=== PATIENT | male | race Two or more races ===

== ENCOUNTER 2022-12-04 17:25 | Newborn (NB) | payer MEDICAID, SELFPAY ==
[2022-12-04] VITALS (7 sets, daily range): PULSE 120–135; RESP 38–46; TEMP 36.4–37
[2022-12-05] VITALS (7 sets, daily range): PULSE 120–130; RESP 32–38; TEMP 36.6–37.2; O2SAT 95–96
--- NOTE | 2022-12-05 06:53 | HPE_ITS ---
Date of service: 12/05/22 Time of Service: 06:53 Assessment and Plan Assessment and plan (1) Liveborn , of [place] , born in hospital by vaginal delivery: Status: Chronic Assessment and plan: boy, delivered via uncomplicated vaginal delivery at 40+1 weeks EGA to a 35 year old (SAB x 1) GBS negative mom. Maternal blood type O+/ALEXEY negative. blood type A+/ALEXEY negative. weight 3690 grams. Mom is breast feeding and infant has latched a few times since . Noted both urine and stool output. Physical exam unremarkable. Routine monitoring, care, safety, and feeding. Plan for discharge to home in 24-36 hours. Family and nursing care team updated with regards to assessment and plan and stated agreement and understanding. Exam General Apperance Notable Details: General: alert, no distress, non-dysmorphic in appearance Head: normocephalic, atraumatic; anterior fontanelle open, soft and flat Eyes: red reflexes present bilaterally, normal set and spacing, no conjunctival injection, no drainage noted Nose: nares patent bilaterally, no nasal flaring Ears: pinna with normal shape and appropriately set; no ear drainage noted Oral/Pharyngeal: moist mucus membranes, no lesions, palate intact Neck: supple and with full range of motion Chest well: nipples normal set and spacing; chest expansion and chest well symmetric CV: heart with regular rate and rhythm; no murmur; femoral and brachial pulses 2+ and are equal bilaterally Lungs: clear to auscultation bilaterally with good aeration in all lung hernandez; normal respiratory rate; no retractions no increased work of breathing noted Abdomen: soft, non-tender, non-distended; no organomegaly; no masses noted; umbilicus with clamp Skin: acyanotic, no rashes, no lesions, no bruising, well perfused : anus patent and in appropriate location; normal external male genitalia; testes descended bilaterally Extremities: moves all extremities well; no deformity noted on inspection; bilateral hips with no clicks/clunks; no edema Neuro: alert and appropriate to exam; good tone, normal michael Spine: straight and without deformity; no sacral dimple or donna Delivery Delivery Info Gestational Age in Weeks/Days: 40 Weeks and 1 Days Gestational Status: Term (39-41.6 wks) Infant Gender: Male Type of Delivery: Vaginal Infant Delivery Date-Baby A: 12/04/22 Delivery Time-Baby A: 17:25 weight: 3690 g Length-Baby A: 52.07 cm Head Circumference-Baby A: 32 cm Presentation: Cephalic Cephalic Position: Vertex Breech Position: N/A Number of Cord Vessels: 3 Total Time of ROM: [id number] Amniotic Fluid Color: Light Meconium Born En Route: No Shoulder Dystocia: No Vacuum Assisted Delivery: N/A Forcep Assisted Delivery: N/A Delivery Outcome: Liveborn -1 Minute Interval Heart Rate-1 minute: 100 BPM or Greater Respiratory Effort- 1 minute: Spontaneous/Strong Cry Muscle Tone-1 minute: Active Movement Reflex Response-1 minute: Prompt Response Color-1 minute: Pallor or Cyanosis Total Score-1 minute: 8 -5 Minute Interval Heart Rate- 5 minute: 100 BPM or Greater Respiratory Effort-5 minute: Spontaneous/Strong Cry Muscle Tone-5 minute: Active Movement Reflex Response-5 minute: Prompt Response Color-5 minute: Bluish Hands or Feet Total Score- 5 minute: 9 Maternal History Maternal Information Alcohol Intake: never Substance Use Type: does not use Maternal Medical History Maternal History Summary Note: See Maternal History Diabetes: NEGATIVE FOR Hypertension: NEGATIVE FOR Heart disease: NEGATIVE FOR Auto-immune disorder: NEGATIVE FOR Kidney disease/UTI: NEGATIVE FOR Neurologic/epilepsy: NEGATIVE FOR Psychiatric: NEGATIVE FOR Depression/ depression: NEGATIVE FOR Hepatitis/liver disease: NEGATIVE FOR Varicosities/phlebitis: NEGATIVE FOR Thyroid dysfunction: NEGATIVE FOR Trauma/domestic violence: NEGATIVE FOR History of blood transfusions: NEGATIVE FOR D (Rh) Sensitized: NEGATIVE FOR Pulmonary (e.g.,TB,Asthma): NEGATIVE FOR Seasonal allergies: NEGATIVE FOR Drug/latex allergies/reactions: NEGATIVE FOR Breast: NEGATIVE FOR Manager Nursing Home surgery: NEGATIVE FOR Operations/hospitalizations: NEGATIVE FOR Anesthetic complications: NEGATIVE FOR History of abnormal pap: NEGATIVE FOR Uterine anomaly/hailee: NEGATIVE FOR Infertility: NEGATIVE FOR Anti-retroviral treatment: NEGATIVE FOR Relevant family history: NEGATIVE FOR Genetic History Patients age 35 years or older as of [place]: Yes Thalassemia (Sinhala, Faroese, Mediterranean, or Black: No Congenital Heart Defect: No Neural Tube Defect (Meningomyelocele, Spina Bifida, or Ancen: No Down Syndrome: No Anoop-Sachs (Ashkenazi Nondenominational, Cajun, Tajik [place]): No Petra Disease (Ashkenazi Nondenominational): No Familial Dysautonomia (Ashkenazi Nondenominational): No Sickle Cell Disease or Trait (): No Muscular Dystrophy: No Cystic Fibrosis: No P[place]'s Chorea: No Mental Retardation/Autism: No Other inherited genetic or chromosomal disorder: No Maternal Metabolic Disorder (EG,TYPE 1 Diabetes, PKU): No Patient or baby's father had a child with defects: No Recurrent loss or a stillbirth: No Medications (including supplements, vitamins, herbs or o: No Any other: No Maternal Information Maternal History Age: 35 : 4 Para: 2 Expected Date of Delivery: 12/03/22 Number of Babies in Womb: 1 Gestational Age in Weeks/Days: 40 Weeks and 1 Days Delivery Date-Baby A: 12/04/22 Maternal Labs Group Beta Strep Negative Rubella Positive (05/22/22 15:00) Hepatitis B Negative (05/22/22 15:00) Hepatitis C Antibody Negative (05/22/22 15:00) Blood Type O+ Antibody Screen NEGATIVE (12/04/22 15:37) HIV Negative (05/22/22 15:00) Syphillis Gonorrhea Negative (05/22/22 14:30) Chlamydia Negative (05/22/22 14:30) Varicella Immunity Immune Labor/Delivery Information Labor Anesthesia: None Attempted: No Maternal Medications Steroids Given: None Reason Steroids Not Administered: N/A Visit Medications Visit Medications: Generic Name Dose Route Start Last Admin Trade Name Freq PRN Reason Stop Dose Admin Erythromycin 0 gm 12/04/22 18:00 12/04/22 20:21 Erythromycin Ophth Oint 1 Gm Tube OU 1 tube DIRECTED TY Administration Phytonadione 1 mg 12/04/22 18:00 12/04/22 20:21 Phytonadione 1 Mg/0.5 Ml Amp IM 1 mg DIRECTED TY Administration
[2022-12-05] MEDS: Acetaminophen Solution 160 MG/5 ML CUP 40 MG PO (13:02)
--- NOTE | 2022-12-05 14:37 | W.OB.CIRC ---
Date of service: 12/05/22 Time of Service: 14:37 Circumcision Note Pre-Procedure Circumcision Request: Yes Circumcision Consent: Verbal Consent Obtained and Written Consent Signed Position: Papoose Board and Supine Time Out: Correct Patient, Correct Site, Correct Patient Position, Agreement on Procedure, Accurate Procedure Consent Form and Safety Precautions Based on Patient History or Medication Use Procedure Information Time of Procedure: 14:38 Site Prep: Sterile Drape and Alcohol Anesthetics/Blocks: 1% Lidocaine and Ring Block Equipment Used: Mogen Clamp Systemic Medications: Oral Medication (24% sucrose drops, 40 mg tylenol PO) Complications: None Status: Appropriate Cosmetic Outcome, Hemostatic and Tolerated Procedure Well Parents Present: Mother and Father Procedure Note: F/up with Peds
[2022-12-05] MEDS: Lidocaine 1% Multi-Dose 20 ML VIAL (14:38)
--- NOTE | 2022-12-05 18:19 | W.NBDISCHARG ---
Date of service: 12/05/22 Time of Service: 17:20 DS: Diagnosis Discharge Diagnosis (1) Liveborn infant, of [place] , born in hospital by vaginal delivery: Status: Chronic Discharge Plan Disposition Patient Disposition: Home Condition: Good Discharge Details Reason For Visit: Admit Date/Time: 12/04/22 17:25 Admit Provider: Harika Graves Attending Provider: Harika Graves Hospital Course Hospital Course: boy, delivered via uncomplicated vaginal delivery at 40+1 weeks EGA to a 35 year old (SAB x 1) GBS negative mom. Maternal blood type O+/ALEXEY negative. blood type A+/ALEXEY negative. weight 3690 grams. weight at d/c 3505g, -5% from BW well circumcision completed prior to discharge 24 hour screens completed, passed CCHD and hearing screen passed NBS completed and sent for processing TcB well below light level follow-up on Thursday 12/07 at 10:[address] Graves Discharge Instructions Additional Instructions: Congratulations on the of your new baby! It has been a pleasure caring for you during this time! Babies are typically seen in the pediatric clinic for a weight check 1-2 days after discharge and sometimes again a few days after this to monitor growth. After this, the next well visit will be at 2 weeks of life and then we see babies every 2 months until 6 months of age, when we start seeing them every 3 months. If at any time between these visits you have any concerns, please feel free to reach out to your gas line repairer! Some instructions for home: Continue frequent feedings, every 2-3 hours and feed until he appears satisfied Change diapers frequently to avoid diaper rash Keep umbilical cord clean and dry and call if there is redness, drainage or foul smell Place in rear facing car seat in the back seat of the car Place infant on back in bassinet or crib without stuffies or large blankets while sleeping Breast fed babies should receive 400 units of vitamin D daily (can be purchased over the counter at the pharmacy and should be started in the first weeks of life) call or seek care if fever > 100 degrees F or 38 degrees C Stand Alone Forms: [facility] [place] Instructions Activity:: Activity as Tolerated Equipment/Supplies:: No Equipment Needed Diet:: As Tolerated Discharge Orders Discharge Orders: Discharge Order (Routine); Ordered 12/05/22 Ordered By: Aaliyha Silva Delivery Delivery Info Gestational Age in Weeks/Days: 40 Weeks and 1 Days Gestational Status: Term (39-41.6 wks) Infant Gender: Male Type of Delivery: Vaginal Infant Delivery Date-Baby A: 12/04/22 Infant Delivery Time-Baby A: 17:25 weight: 3690 g Length-Baby A: 52.07 cm Head Circumference-Baby A: 32 cm Presentation: Cephalic Cephalic Position: Vertex Breech Position: N/A Number of Cord Vessels: 3 Total Time of ROM: [id number] Amniotic Fluid Color: Light Meconium Born En Route: No Shoulder Dystocia: No Vacuum Assisted Delivery: N/A Forcep Assisted Delivery: N/A Delivery Outcome: Liveborn -1 Minute Interval Heart Rate-1 minute: 100 BPM or Greater Respiratory Effort- 1 minute: Spontaneous/Strong Cry Muscle Tone-1 minute: Active Movement Reflex Response-1 minute: Prompt Response Color-1 minute: Pallor or Cyanosis Total Score-1 minute: 8 -5 Minute Interval Heart Rate- 5 minute: 100 BPM or Greater Respiratory Effort-5 minute: Spontaneous/Strong Cry Muscle Tone-5 minute: Active Movement Reflex Response-5 minute: Prompt Response Color-5 minute: Bluish Hands or Feet Total Score- 5 minute: 9 Weight Assessment Weight Change: weight 3690 g Weight 3505 g Weight Difference -185.000 [place] Percent Weight Change -5.01 I&O Intake/Output Totals 24 Hours: 12/04/22 12/04/22 12/05/22 12/05/22 11:59 23:59 11:59 23:59 Output Total 3 / 3 3 / 5 2 / 5 Balance -3 / -3 -3 / -5 -2 / -5 Output: Void Count Stool Count Other: Weight 3690 g 3575 g 3505 g Exam General Apperance Within Normal Limits Skin Within Normal Limits Neurological Normal Tone, Brionna, Grasp, Root and Suck Musculosketal Within Normal Limits, Full Range Motion, Spontaneous Movement All Extremities, Intact Clavicles, Clavicles without Crepitus, Gluteal Folds Symmetrical and Spine within Normal Limit; negative Hip Subluxation or Hip Dislocation Head Normal Fontanelles, Normacephalic and Sutures WNL EENT Mouth within Normal Limits, Ears within Normal Limits, Eyes Red Reflex Bilaterally and Nose within Normal Limits Cardiovascular Within Normal Limits and Normal Pulses; negative Murmur Respiratory Within Normal Limits; negative Grunting, Nasal Flaring or Retracting Gastrointestinal Within Normal Limits and Soft Notable Details: Anus appears patent. Umbilicus Within Normal Limits Discharge Data/Results Time Spent with Patient Total time spent with greater than 50% in coordination of care (as documented) at patient's floor/unit and/or counseling patient:: 25 - 35 minutes Discharge Weight Weight: 3505 g Circumcision Equipment Used: Mogen Clamp Circumcision Date: 12/05/22 Time of Procedure: 14:15 CCHD Results Critical Congenital Heart Disease Screen Result: Passed Critical Congenital Heart Disease Screen Status: CCHD Screen Complete CCHD - Screen Attempt: First CCHD - Pulse Oximetry - Right Hand: 95 CCHD-Pulse Oximetry-Left Foot: 96 CCHD - SpO2 Difference: 1 Transcutaneous Bilirubin Results Transcutaneous Bilirubin: 3.3 Transcutaneous Bili Date: 12/05/22 Transcutaneous Bili Time: 05:17 Labs from last 24 hours 12/04/22 17:30 Patient ABO/Rh A Positive Direct Antiglob Test Negative Last Vital Signs Temp 36.6 C 12/05/22 15:15 Pulse 130 12/05/22 15:15 Resp 32 12/05/22 15:15 Visit Medications Visit Medications: Generic Name Dose Route Start Last Admin Trade Name Freq PRN Reason Stop Dose Admin Acetaminophen 40 mg 12/05/22 08:14 12/05/22 13:02 Acetaminophen Solution 160 Mg/5 Ml Cup PO 40 mg DIRECTED PRN Administration Erythromycin 0 gm 12/04/22 18:00 12/04/22 20:21 Erythromycin Ophth Oint 1 Gm Tube OU 1 tube DIRECTED TY Administration Phytonadione 1 mg 12/04/22 18:00 12/04/22 20:21 Phytonadione 1 Mg/0.5 Ml Amp IM 1 mg DIRECTED TY Administration Sucrose 0 ml 12/04/22 17:50 12/05/22 14:37 Sucrose 24% Solution 2 Ml Dropper PO 2 ml PRN PRN Administration Discontinued Medications Generic Name Dose Route Start Last Admin Trade Name Freq PRN Reason Stop Dose Admin Hepatitis B Vaccine 10 mcg 12/04/22 17:50 12/05/22 07:06 Hepatitis B Virus Vaccine 10 Mcg Syr IM 12/04/22 17:51 Not Given .ONCE ONE Lidocaine HCl 1 ml 12/05/22 08:14 12/05/22 18:06 Lidocaine 1% Multi-Dose 20 Ml Vial IJ 12/05/22 08:15 Not Given DIRECTED ONE Maternal History Maternal Information Alcohol Intake: never Substance Use Type: does not use Maternal Medical History Maternal History Summary Note: See Maternal History Diabetes: NEGATIVE FOR Hypertension: NEGATIVE FOR Heart disease: NEGATIVE FOR Auto-immune disorder: NEGATIVE FOR Kidney disease/UTI: NEGATIVE FOR Neurologic/epilepsy: NEGATIVE FOR Psychiatric: NEGATIVE FOR Depression/ depression: NEGATIVE FOR Hepatitis/liver disease: NEGATIVE FOR Varicosities/phlebitis: NEGATIVE FOR Thyroid dysfunction: NEGATIVE FOR Trauma/domestic violence: NEGATIVE FOR History of blood transfusions: NEGATIVE FOR D (Rh) Sensitized: NEGATIVE FOR Pulmonary (e.g.,TB,Asthma): NEGATIVE FOR Seasonal allergies: NEGATIVE FOR Drug/latex allergies/reactions: NEGATIVE FOR Breast: NEGATIVE FOR Worker'S Compensation Claims Examiner surgery: NEGATIVE FOR Operations/hospitalizations: NEGATIVE FOR Anesthetic complications: NEGATIVE FOR History of abnormal pap: NEGATIVE FOR Uterine anomaly/hailee: NEGATIVE FOR Infertility: NEGATIVE FOR Anti-retroviral treatment: NEGATIVE FOR Relevant family history: NEGATIVE FOR Genetic History Patients age 35 years or older as of [place]: Yes Thalassemia (Sami, Japanese, Mediterranean, or Black: No Congenital Heart Defect: No Neural Tube Defect (Meningomyelocele, Spina Bifida, or Ancen: No Down Syndrome: No Anoop-Sachs (Ashkenazi Pentecostalism, Cajun, [place]): No Petra Disease (Ashkenazi Pentecostalism): No Familial Dysautonomia (Ashkenazi Pentecostalism): No Sickle Cell Disease or Trait (): No Muscular Dystrophy: No Cystic Fibrosis: No [place]'s Chorea: No Mental Retardation/Autism: No Other inherited genetic or chromosomal disorder: No Maternal Metabolic Disorder (EG,TYPE 1 Diabetes, PKU): No Patient or baby's father had a child with defects: No Recurrent loss or a stillbirth: No Medications (including supplements, vitamins, herbs or o: No Any other: No PFSH All Active Problems (Updated 12/05/22 @ 06:53 by Harika Graves MD) Liveborn infant, of [place] , born in hospital by vaginal delivery (Chronic) boy, delivered via uncomplicated vaginal delivery at 40+1 weeks EGA to a 35 year old (SAB x 1) GBS negative mom. Maternal blood type O+/ALEXEY negative. Infant blood type A+/ALEXEY negative. weight 3690 grams. Social History Smoking risk assessment performed?: No
== END 2022-12-05 19:05 | disposition home or self-care (01) | DRG 795 ==
DX: Z38.00 Single liveborn infant, delivered vaginally (principal)
CPT/HCPCS: 54150; 36416; 86900; 86901; 92558; J3490; 84030; 86880; J3430